=== PATIENT | male | born 1950 | race Caucasian/White ===

== ENCOUNTER 2020-12-26 11:00 | Outpatient (RCR) | payer MEDICARE, SELFPAY | END 2020-12-27 23:59 | disposition home or self-care (01) | LOC: CR 11:00 | PROVIDERS: PCP Family Medicine; Visit Provider Family Medicine | DX: Z51.89 Encounter for other specified aftercare (principal); I25.2 Old myocardial infarction; Z95.1 Presence of aortocoronary bypass graft | CPT/HCPCS: S9472 ==

== ENCOUNTER 2021-01-25 11:00 | Outpatient (RCR) | payer MEDICARE, SELFPAY | END 2021-01-27 23:59 | disposition home or self-care (01) | LOC: CR 11:00 | PROVIDERS: PCP Family Medicine; Visit Provider Family Medicine | DX: Z51.89 Encounter for other specified aftercare (principal); I25.2 Old myocardial infarction; Z95.1 Presence of aortocoronary bypass graft | CPT/HCPCS: S9472 ==